=== PATIENT | male | born 1955 | race Caucasian/White ===

== ENCOUNTER 2017-05-21 15:03 | Inpatient (IN) | payer BC ==
[~2017-05-21] VITALS: Ht 180.3 cm; Wt 105.7 kg
[2017-05-21] MEDS ORDERED: [UNRECOGNIZED DRUG - CODE] PO (15:11)
[2017-05-21] MEDS ORDERED: ASPIRIN E.C. 8181 MG PO (15:11)
[2017-05-21] MEDS ORDERED: FISH OIL1 IU (15:12)
[2017-05-21 17:40] VITALS: BP 111/66
[2017-05-21 19:08] VITALS: BP 111/66
[2017-05-21 22:30] VITALS: BP 124/75
[2017-05-22 02:38] VITALS: BP 103/61
[2017-05-22 06:23] VITALS: BP 106/63
[2017-05-22 10:55] VITALS: BP 127/63
[2017-05-22 15:19] VITALS: BP 130/74
[2017-05-22 17:53] VITALS: BP 101/58
[2017-05-22 22:37] VITALS: BP 97/49
[2017-05-23 02:58] VITALS: BP 119/71
[2017-05-23 06:13] VITALS: BP 112/63
[2017-05-23 10:28] VITALS: BP 122/77
== END 2017-05-23 10:46 | disposition short-term general hospital (02) | DRG 869 ==
LOC: ED 15:03 → MED/SURG 17:20
PROVIDERS: ADMIT Physician Assistant
DX: A77.40 Ehrlichiosis, unspecified (principal); R53.83 Other fatigue; E86.0 Dehydration; R09.02 Hypoxemia; D69.6 Thrombocytopenia, unspecified
CPT/HCPCS: J1956; J3370; J7050; J7120; Q9967

== ENCOUNTER → 2017-05-21 | Outpatient (CLI) | payer BC ==
[2016-06-09 15:37] VITALS: BP 153/97
[~2017-05-21] MED LIST: ASPIRIN E.C. 8181 MG PO; FISH OIL1 IU; [UNRECOGNIZED DRUG - CODE] PO
== END ==
LOC: LAB 13:37 → RAD 13:37
DX: R50.9 Fever, unspecified (principal); R53.81 Other malaise; R06.02 Shortness of breath

== ENCOUNTER → 2017-05-31 | Outpatient (CLI) | payer BC ==
[2017-05-23 10:28] VITALS: BP 122/77
== END ==
LOC: LAB 13:41
DX: A77.49 Other ehrlichiosis (principal)

== ENCOUNTER → 2017-08-27 | Outpatient (CLI) | payer BC ==
[2017-08-27 15:19] LABS: ALBUMIN 3.9 g/dL (3.5-5.0); BUN/CREATININE RATIO 15.7 (6.0-26.0); CALCIUM 8.8 mg/dL (8.4-10.2); POTASSIUM 3.8 mmol/L (3.6-5.0); TOTAL BILIRUBIN 0.6 mg/dL (0.2-1.3); TOTAL PROTEIN 7.5 g/dL (6.3-8.2)
[2017-08-27 15:23] LABS: BASO # 0.1 (0.02-0.10); EOS # 0.3 (0.04-0.40); HEMATOCRIT 42.4 % (42.0-52.0); HEMOGLOBIN 14.5 g/dL (13.5-18.0); MEAN CELL VOLUME 93 fl (78-100); MEAN CORPUSCULAR HEMOGLOBIN 32 pg (27-31); MEAN CORPUSCULAR HGB CONC 34 g/dL (33-37); MEAN PLATELET VOLUME 10.9 fl (7.4-10.4); MONO # 0.6 (0.20-0.80); NEU # 5.3 (1.40-6.50); PLATELET COUNT 220 K/mm3 (130-400); RED BLOOD COUNT 4.57 M/mm3 (4.20-5.60); RED CELL DISTRIBUTION WIDTH 12.9 % (11.5-14.5); WHITE BLOOD COUNT 8.3 K/mm3 (4.8-10.8)
[2017-08-27 16:36] LABS: ERYTHROCYTE SEDIMENTATION RATE 15 mm/hr (0-20)
[2017-08-27 23:42] LABS: TESTOSTERONE 349 ng/dL (221-716)
== END ==
LOC: LAB 14:17
PROVIDERS: Internal Medicine
DX: Z00.00 Encounter for general adult medical examination without abnormal findings (principal); Z12.5 Encounter for screening for malignant neoplasm of prostate; Z12.11 Encounter for screening for malignant neoplasm of colon; G62.89 Other specified polyneuropathies; E78.2 Mixed hyperlipidemia

== ENCOUNTER → 2017-09-04 | Outpatient (CLI) | payer BC | LOC: LAB 10:42 | DX: Z00.00 Encounter for general adult medical examination without abnormal findings (principal); Z12.11 Encounter for screening for malignant neoplasm of colon ==

== ENCOUNTER 2018-08-06 09:24 | Emergency (ER) | payer BC ==
[2018-08-06 10:06] LABS: EOS # 0.1 (0.04-0.40); EOS % 1.4 % (0.0-4.0); HEMATOCRIT 42.6 % (42.0-52.0); HEMOGLOBIN 15.2 g/dL (13.5-18.0); LYMPH# 1.1 (1.50-4.00); MEAN CELL VOLUME 91 fl (78-100); MEAN CORPUSCULAR HEMOGLOBIN 33 pg (27-31); MEAN CORPUSCULAR HGB CONC 36 g/dL (33-37); MEAN PLATELET VOLUME 10.6 fl (7.4-10.4); MONO # 0.4 (0.20-0.80); PLATELET COUNT 188 K/mm3 (130-400); RED BLOOD COUNT 4.68 M/mm3 (4.20-5.60); RED CELL DISTRIBUTION WIDTH 12.5 % (11.5-14.5); WHITE BLOOD COUNT 5.6 K/mm3 (4.8-10.8)
[2018-08-06 10:11] LABS: CALCIUM 8.9 mg/dL (8.4-10.2); POTASSIUM 4.2 mmol/L (3.6-5.0)
[2018-08-06 10:42] LABS: PH-URINE 6.5 (5.0 - 8.0); URINE APPEARANCE CLEAR; URINE BILIRUBIN NEGATIVE (NEGATIVE); URINE BLOOD NEGATIVE (NEGATIVE); URINE COLOR YELLOW; URINE GLUCOSE NEGATIVE (NEGATIVE); URINE KETONE NEGATIVE (NEGATIVE); URINE LEUKOCYTE ESTERASE NEGATIVE (NEGATIVE); URINE MUCUS PRESENT (NOT PRESENT); URINE NITRATE NEGATIVE (NEGATIVE); URINE PROTEIN(semi-quant) NEGATIVE (NEGATIVE); URINE UROBILINOGEN NORMAL (NORMAL)
[2018-08-06] MEDS ORDERED: ZESTRIL10 M1 PO (11:13)
[2018-08-06 11:40] VITALS: BP 162/110
== END 2018-08-06 12:10 | disposition home or self-care (01) ==
LOC: ED 09:24
PROVIDERS: Physician Assistant
DX: R07.89 Other chest pain (principal); I10 Essential (primary) hypertension; F41.9 Anxiety disorder, unspecified

== ENCOUNTER → 2018-08-28 | Outpatient (CLI) | payer BC ==
[2018-08-06 11:40] VITALS: BP 162/110
[~2018-08-28] MED LIST changes: +ZESTRIL10 M1 PO
[2018-08-28 10:01] LABS: EOS # 0.1 (0.04-0.40); EOS % 2.3 % (0.0-4.0); HEMATOCRIT 45.5 % (42.0-52.0); LYMPH# 1.6 (1.50-4.00); MEAN CELL VOLUME 92 fl (78-100); MEAN CORPUSCULAR HEMOGLOBIN 32 pg (27-31); MEAN CORPUSCULAR HGB CONC 35 g/dL (33-37); MEAN PLATELET VOLUME 10.3 fl (7.4-10.4); MONO # 0.5 (0.20-0.80); NEU # 3.5 (1.40-6.50); PLATELET COUNT 194 K/mm3 (130-400); RED BLOOD COUNT 4.97 M/mm3 (4.20-5.60); RED CELL DISTRIBUTION WIDTH 12.6 % (11.5-14.5); WHITE BLOOD COUNT 5.7 K/mm3 (4.8-10.8)
[2018-08-28 10:13] LABS: ALBUMIN 4.6 g/dL (3.5-5.0); CALCIUM 9.2 mg/dL (8.4-10.2); POTASSIUM 4.3 mmol/L (3.6-5.0); TOTAL BILIRUBIN 1.1 mg/dL (0.2-1.3); TOTAL PROTEIN 8.3 g/dL (6.3-8.2)
[2018-08-28 12:01] LABS: ERYTHROCYTE SEDIMENTATION RATE 8 mm/hr (0-20)
[2018-08-29 03:10] LABS: TESTOSTERONE 540 ng/dL (221-716)
== END ==
LOC: LAB 09:39
PROVIDERS: Internal Medicine
DX: Z12.5 Encounter for screening for malignant neoplasm of prostate (principal); Z12.11 Encounter for screening for malignant neoplasm of colon; Z00.00 Encounter for general adult medical examination without abnormal findings

== ENCOUNTER → 2018-09-03 | Outpatient (CLI) | payer BC ==
[2018-08-06 11:40] VITALS: BP 162/110
== END ==
LOC: LAB 09:23 → CARDREHAB 09:23
DX: Z12.11 Encounter for screening for malignant neoplasm of colon (principal); Z00.00 Encounter for general adult medical examination without abnormal findings
CPT/HCPCS: G0399

== ENCOUNTER → 2019-03-17 | Outpatient (CLI) | payer BC | LOC: RAD 10:27 | DX: M16.12 Unilateral primary osteoarthritis, left hip (principal) ==

== ENCOUNTER → 2019-03-18 | Outpatient (CLI) | payer BC | LOC: RAD 09:15 | DX: M16.0 Bilateral primary osteoarthritis of hip (principal) ==

== ENCOUNTER → 2020-12-21 | Outpatient (CLI) | payer MEDICARE, BC ==
[2020-12-21 07:22] LABS: EOS # 0.2 (0.04-0.40); EOS % 3.5 % (0.0-4.0); HEMATOCRIT 44.7 % (42.0-52.0); HEMOGLOBIN 15.1 g/dL (13.5-18.0); LYMPH# 1.9 (1.50-4.00); MEAN CELL VOLUME 95 fl (78-100); MEAN CORPUSCULAR HEMOGLOBIN 32 pg (27-31); MEAN CORPUSCULAR HGB CONC 34 g/dL (33-37); MEAN PLATELET VOLUME 10.5 fl (7.4-10.4); MONO # 0.6 (0.20-0.80); NEU # 3.4 (1.40-6.50); PLATELET COUNT 204 K/mm3 (130-400); RED BLOOD COUNT 4.72 M/mm3 (4.20-5.60); RED CELL DISTRIBUTION WIDTH 12.7 % (11.5-14.5); WHITE BLOOD COUNT 6.1 K/mm3 (4.8-10.8)
[2020-12-21 07:27] LABS: POTASSIUM 4.9 mmol/L (3.5-5.1)
[2020-12-21 07:28] LABS: ALBUMIN 4.2 g/dL (3.4-4.8)
[2020-12-21 07:30] LABS: TOTAL PROTEIN 7.8 g/dL (6.2-8.1)
[2020-12-21 07:32] LABS: TOTAL BILIRUBIN 0.9 mg/dL (0.2-1.2)
[2020-12-21 08:38] LABS: ERYTHROCYTE SEDIMENTATION RATE 15 mm/hr (0-20)
== END ==
LOC: LAB 07:05
PROVIDERS: Internal Medicine
DX: Z00.00 Encounter for general adult medical examination without abnormal findings (principal)

== ENCOUNTER 2021-07-19 09:50 | Emergency (ER) | payer MEDICARE, BC ==
[~2021-07-19] VITALS: Wt 111.5 kg
[2021-07-19] MEDS ORDERED: PRILOSEC 20MG20 MG PO (10:02)
[2021-07-19] MEDS ORDERED: DICLOFENAC SOD100 M1 PO (10:03)
[2021-07-19] MEDS ORDERED: GOOD NEIGHBOR P10 M1 PO (10:03)
[2021-07-19] MEDS ORDERED: ADULT ASPIRIN R81 MG PO (10:03)
[2021-07-19 10:24] LABS: BASO # 0.04 K/mm3 (0.02-0.10); EOS # 0.17 K/mm3 (0.04-0.40); EOS % 2.7 % (0.0-4.0); HEMATOCRIT 44.6 % (42.0-52.0); HEMOGLOBIN 15.3 g/dL (13.5-18.0); LYMPH# 1.83 K/mm3 (1.50-4.00); MEAN CELL VOLUME 95 fl (78-100); MEAN CORPUSCULAR HEMOGLOBIN 33 pg (27-31); MEAN CORPUSCULAR HGB CONC 34 g/dL (33-37); MEAN PLATELET VOLUME 10.3 fl (7.4-10.4); MONO # 0.37 K/mm3 (0.20-0.80); NEU # 3.78 K/mm3 (1.40-6.50); PLATELET COUNT 193 K/mm3 (130-400); RED BLOOD COUNT 4.69 M/mm3 (4.20-5.60); RED CELL DISTRIBUTION WIDTH 12.6 % (11.5-14.5); WHITE BLOOD COUNT 6.2 K/mm3 (4.8-10.8)
[2021-07-19 10:45] LABS: ALBUMIN 4.1 g/dL (3.4-4.8); POTASSIUM 4.5 mmol/L (3.5-5.1); SODIUM 140 mmol/L (136-145)
[2021-07-19 10:47] LABS: CALCIUM 9.3 mg/dL (8.3-10.5)
[2021-07-19 10:48] LABS: GLUCOSE 114 mg/dL (75-110); TOTAL PROTEIN 7.8 g/dL (6.2-8.1)
[2021-07-19 10:49] LABS: CARBON DIOXIDE 23 mmol/L (23-31)
[2021-07-19 10:50] LABS: TOTAL BILIRUBIN 0.6 mg/dL (0.2-1.2)
[2021-07-19 10:53] LABS: AST-SGOT 21 U/L (5-34)
[2021-07-19 10:54] LABS: ALT/SGPT 27 U/L (0-55)
[2021-07-19 11:12] LABS: TROPONIN-I < 0.03 ng/mL (<0.030)
[2021-07-19 11:31] LABS: PH-URINE 5.5 (5.0 - 8.0); URINE APPEARANCE CLEAR; URINE BILIRUBIN NEGATIVE (NEGATIVE); URINE BLOOD NEGATIVE (NEGATIVE); URINE COLOR YELLOW; URINE GLUCOSE NEGATIVE (NEGATIVE); URINE KETONE NEGATIVE (NEGATIVE); URINE LEUKOCYTE ESTERASE NEGATIVE (NEGATIVE); URINE MUCUS PRESENT (NOT PRESENT); URINE NITRATE NEGATIVE (NEGATIVE); URINE PROTEIN(semi-quant) TRACE mg/dL (NEGATIVE); URINE UROBILINOGEN NORMAL (NORMAL); URINE WBC 0-1 /hpf (0-3)
[2021-07-19 12:11] VITALS: BP 150/91
== END 2021-07-19 12:08 | disposition home or self-care (01) ==
LOC: ED 09:50
PROVIDERS: Physician Assistant
DX: R05.9 Cough, unspecified (principal)

== ENCOUNTER → 2021-08-17 | Outpatient (CLI) | payer MEDICARE, BC ==
[~2021-08-17] MED LIST changes: +ADULT ASPIRIN R81 MG PO; +DICLOFENAC SOD100 M1 PO; +GOOD NEIGHBOR P10 M1 PO; +PRILOSEC 20MG20 MG PO
== END ==
LOC: RAD 14:24
DX: R47.1 Dysarthria and anarthria (principal)
CPT/HCPCS: A9585

== ENCOUNTER 2022-07-23 16:40 | Emergency (ER) | payer MEDICARE, BC ==
[2022-07-23] MEDS ORDERED: AMOXICILLIN AND1 TA2 PO (17:14)
[2022-07-23] MEDS ORDERED: NORCO 325 MG-51 TA1 PO (17:37)
[2022-07-23 17:43] VITALS: BP 171/108
== END 2022-07-23 17:44 | disposition home or self-care (01) ==
LOC: ED 16:40
DX: S61.451A Open bite of right hand, initial encounter (principal); S61.452A Open bite of left hand, initial encounter; Z23 Encounter for immunization; W54.0XXA Bitten by dog, initial encounter
CPT/HCPCS: 90715

== ENCOUNTER 2023-07-19 08:05 | Emergency (ER) | payer MEDICARE, BC ==
[~2023-07-19] VITALS: Ht 180.3 cm; Wt 111.5 kg
[~2023-07-19 08:05] MED LIST changes: +AMOXICILLIN AND1 TA2 PO; +NORCO 325 MG-51 TA1 PO
[2023-07-19] MEDS ORDERED: HYDROCHLOROTH12.5 M1 PO (09:34)
[2023-07-19 09:45] VITALS: BP 154/88
== END 2023-07-19 09:46 | disposition home or self-care (01) ==
LOC: ED 08:05
DX: I10 Essential (primary) hypertension (principal)

== ENCOUNTER → 2024-04-21 | Outpatient (CLI) | payer MEDICARE, BC ==
[~2024-04-21] MED LIST changes: +HYDROCHLOROTH12.5 M1 PO
== END ==
LOC: AMSURD 16:03
DX: R00.1 Bradycardia, unspecified (principal)

== ENCOUNTER → 2024-09-02 | Outpatient (CLI) | payer MEDICARE, BC ==
[2024-09-02 07:23] LABS: BASO # 0.03 K/mm3 (0.02-0.10); EOS # 0.05 K/mm3 (0.04-0.40); EOS % 1.1 % (0.0-4.0); HEMATOCRIT 41.3 % (42.0-52.0); HEMOGLOBIN 13.9 g/dL (13.5-18.0); LYMPH# 1.44 K/mm3 (1.50-4.00); MEAN CELL VOLUME 98 fl (78-100); MEAN CORPUSCULAR HEMOGLOBIN 33 pg (27-31); MEAN CORPUSCULAR HGB CONC 34 g/dL (33-37); MEAN PLATELET VOLUME 10.7 fl (7.4-10.4); MONO # 0.42 K/mm3 (0.20-0.80); NEU # 2.67 K/mm3 (1.40-6.50); PLATELET COUNT 190 K/mm3 (130-400); RED CELL DISTRIBUTION WIDTH 12.6 % (11.5-14.5); WHITE BLOOD COUNT 4.6 K/mm3 (4.8-10.8)
[2024-09-02 07:33] LABS: CALCIUM 9.2 mg/dL (8.3-10.5)
[2024-09-02 07:34] LABS: TOTAL PROTEIN 7.2 g/dL (6.2-8.1)
[2024-09-02 07:36] LABS: TOTAL BILIRUBIN 0.3 mg/dL (0.2-1.2)
[2024-09-02 07:41] LABS: MAGNESIUM 1.92 mg/dL (1.60-2.60)
== END ==
LOC: LAB 07:09
PROVIDERS: Internal Medicine
DX: Z12.5 Encounter for screening for malignant neoplasm of prostate (principal); Z12.11 Encounter for screening for malignant neoplasm of colon; E78.2 Mixed hyperlipidemia; I10 Essential (primary) hypertension; K90.9 Intestinal malabsorption, unspecified; R73.9 Hyperglycemia, unspecified

== ENCOUNTER → 2024-09-15 | Outpatient (CLI) | payer MEDICARE, BC | LOC: LAB 08:35 | DX: Z12.5 Encounter for screening for malignant neoplasm of prostate (principal); Z12.11 Encounter for screening for malignant neoplasm of colon; R73.9 Hyperglycemia, unspecified; K90.9 Intestinal malabsorption, unspecified; E78.2 Mixed hyperlipidemia; I10 Essential (primary) hypertension ==